=== PATIENT | female | born 1985 | race African-American/Black ===

== ENCOUNTER 2017-11-04 13:51 | Emergency (ER) | payer OTHER ==
[~2017-11-04] VITALS: Ht 170.2 cm; Wt 102.1 kg
[2017-11-04] MEDS ORDERED: NORCO 5-325 TA1 EACH PO (14:28)
[2017-11-04] MEDS ORDERED: PREDNISONE50 MG PO (14:28)
[2018-01-25] MEDS ORDERED: BACTRIM DS TAB1 EACH PO (19:38)
[2018-01-26] MEDS ORDERED: NOHOMEMEDICATIONS (02:34)
== END 2017-11-04 14:20 | disposition home or self-care (01) ==
LOC: ER 13:51
DX: M54.30 Sciatica, unspecified side (principal)